=== PATIENT | female | born 1950 | race Caucasian/White ===

== ENCOUNTER 2024-07-28 10:39 | Emergency (ER) | payer MEDICARE, OTHER, SELFPAY ==
[2024-07-28 10:41] VITALS: BP 131/73; PULSE 85; TEMP 36.4; O2SAT 95; BMI 17.2
--- NOTE | 2024-07-28 10:52 | CT_ITS ---
The [address] [address] Patient Name: JOHN SALINAS MRN: [id number] date: 1950 Sex: F Assigned Patient Location: ER Current Patient Location: ER Accession/Order Number: [id number] Exam Date: 07/28/2024 12:03 Report Date: 07/28/2024 14:21 At the request of: ODILIA NAVA Procedure: CT chest wo con EXAMINATION: CT chest wo con, 07/28/2024 11:03 AM CDT HISTORY: fall chest pain. COMPARISON: Chest x-ray 11/18/2022 TECHNIQUE: CT scan of the chest was performed without IV contrast. CT dose reduction technique was used, including Automated Exposure Control. FINDINGS: Lungs/pleura: Lungs are diffusely abnormal. There is bandlike thickening with nodularity most prominent at the apices and left mid chest anteriorly and laterally. Bronchiectasis noted. Nodular densities noted at the apices 8-11 mm along with areas of pleural-based thickening. Areas of interstitial density tree-in-bud appearance seen within the right lung. No dense consolidation or edema. Is a pleural-based thickening question small pleural effusion on the left. No pneumothorax. Mediastinum: No definite adenopathy although assessment limited by lack of contrast. Cardiac/vascular: Heart size borderline. No pericardial effusion. Dilated pulmonary artery consistent with pulmonary hypertension. Mildly dilated aorta 4 cm MUSCULOSKELETAL: moderate wedge-shaped compression T3 without cortical break retropulsion. Age-indeterminate but may be old. Resting kyphosis. Not well demonstrated on previous chest x-ray. No definite acute fracture seen no paraspinal fluid or hematoma. No lower neck or axillary mass or adenopathy. No acute appearing upper abdominal abnormality. CT/CT chest wo con IMPRESSION: 1. Diffusely abnormal lung hobson peripheral pleural-based apical and upper lobe predominant. Chest x-ray also noted diffusely abnormal lung hobson. Question acute versus chronic. Areas of tree-in-bud interstitial density may reflect colitis. No dense consolidation or edema. 2. Pleural-based thickening and questionable small left pleural effusion without pneumothorax. 3. Dilated pulmonary artery consistent with pulmonary hypertension. Mildly dilated aorta. 4. No definite displaced rib fracture or sternal fracture seen. Moderate wedge compression T3 age-indeterminate, may be old. Electronically authenticated by: BARRY COPELAND Date: 07/28/2024 14:21
--- NOTE | 2024-07-28 10:52 | CT_ITS ---
The [address] [address] Patient Name: JOHN SALINAS MRN: [id number] date: 1950 Sex: F Assigned Patient Location: ER Current Patient Location: ER Accession/Order Number: [id number] Exam Date: 07/28/2024 12:03 Report Date: 07/28/2024 12:57 At the request of: ODILIA NAVA Procedure: CT head/brain wo con EXAM: CT head/brain wo con CLINICAL INDICATION: fall COMPARISON: None TECHNIQUE: Axial CT images of the brain were obtained without contrast. Coronal and sagittal reformats were obtained. Dose reduction techniques were achieved by using automated exposure control and/or adjustment of mA and/or kV according to patient size and/or use of iterative reconstruction technique. FINDINGS: No intracranial hemorrhage, extra-axial fluid collection, hydrocephalus, midline shift, or acute large vessel territory infarction. No other mass effect. Patent basal cisterns. Patchy periventricular and subcortical hypoattenuation is likely on the basis of chronic microvascular angiopathic changes. Mild symmetric global volume loss without lobar predominance. Commensurate ventricular system caliber prominence. Bilateral symmetric basal ganglia calcification/mineralization. No calvarial fracture. Normal soft tissues. Moderate left sphenoid sinus mucosal thickening. Remainder of the paranasal sinuses and mastoid air cells are well-aerated. CT/CT head/brain wo con IMPRESSION: No acute intracranial process. Electronically authenticated by: MICHAEL WELLS Date: 07/28/2024 12:57
--- NOTE | 2024-07-28 10:52 | XR_ITS ---
The [address] [address] Patient Name: JOHN SALINAS MRN: [id number] date: 1950 Sex: F Assigned Patient Location: ED.MAIN Current Patient Location: ER Accession/Order Number: [id number] Exam Date: 07/28/2024 14:00 Report Date: 07/28/2024 15:27 At the request of: ODILIA NAVA Procedure: XR shoulder FRANCISCA min 2V EXAM: XR shoulder FRANCISCA min 2V HISTORY: fall right and left shoulder pain COMPARISON: None. TECHNIQUE: AP internal/external rotation, Y-view right shoulder and left shoulder FINDINGS: Right shoulder without fracture or dislocation. Minor degenerative changes. No focal bone lesion. Right lung abnormality also seen on chest x-ray previously. No displaced clavicle right rib fracture noted. Left shoulder without fracture or dislocation. No focal bone lesion. No soft tissue calcification. Minor degenerative changes. Visualized left ribs and clavicle intact. Abnormal lung hobson as seen on previous chest imaging. XR/XR shoulder FRANCISCA min 2V IMPRESSION: No fracture or dislocation right or left shoulder. Electronically authenticated by: BARRY COPELAND Date: 07/28/2024 15:27
--- NOTE | 2024-07-28 10:52 | CT_ITS ---
The [address] [address] Patient Name: JOHN SALINAS MRN: [id number] date: 1950 Sex: F Assigned Patient Location: ER Current Patient Location: ER Accession/Order Number: [id number] Exam Date: 07/28/2024 12:00 Report Date: 07/28/2024 12:54 At the request of: ODILIA NAVA Procedure: CT cervical spine wo con EXAM TYPE: CT cervical spine wo con EXAM DATE AND TIME: 07/28/2024 12:00 PM EDT INDICATION: 74 years old Female with pain following trauma COMPARISON: None TECHNIQUE: CT imaging of the cervical spine was obtained without contrast. Dose reduction techniques were achieved by using automated exposure control and/or adjustment of mA and/or kV according to patient size and/or use of iterative reconstruction technique. FINDINGS: There is normal cervical lordosis. No subluxation. Vertebral body heights are maintained. No acute displaced fracture or traumatic malalignment identified in the setting of osteopenia. Craniocervical junction is normal in appearance. Atlantodental distance is not widened. No prevertebral soft tissue swelling. Mild to moderate multilevel degenerative disc and facet arthropathy. No CT evidence of severe spinal canal stenosis CT/CT cervical spine wo con IMPRESSION: No acute fracture or traumatic malalignment. Electronically authenticated by: BAILEY MCCLENDON Date: 07/28/2024 12:54
--- NOTE | 2024-07-28 10:52 | CT_ITS ---
The [address] [address] Patient Name: OJHN SALINAS MRN: [id number] date: 1950 Sex: F Assigned Patient Location: ER Current Patient Location: ER Accession/Order Number: [id number] Exam Date: 07/28/2024 12:00 Report Date: 07/28/2024 12:58 At the request of: ODILIA NAVA Procedure: CT pelvis wo con Exam Type: CT PELVIS Exam Date and Time: 07/28/2024 12:00 PM EDT Indication: 74 years old Female with pain following trauma Comparison: None TECHNIQUE: Axial CT images of the bony pelvis were obtained without intravenous contrast. Coronal and sagittal reformatted images were obtained. Dose reduction techniques were achieved by using automated exposure control and/or adjustment of mA and/or kV according to patient size and/or use of iterative reconstruction technique. FINDINGS: The bones are diffusely osteopenic, which limits detection of subtle nondisplaced fracture. No acute displaced fracture is evident. There are some cortical regularity involving the mid sacrum at the S3-S4 segment with sclerosis, this could reflect a remote sacral fracture. No comparison studies are available. The sacroiliac joints appear congruent with mild joint space narrowing. The pubic symphysis is congruent. The femurs are well-seated within the acetabula with moderate osteoarthritis. No joint effusion. At least moderate degenerative disc disease the lower lumbar spine, incompletely characterized. Limited evaluation of the pelvic viscera is without acute or suspicious abnormality. CT/CT pelvis wo con IMPRESSION: 1. Suspect chronic sacral fracture. 2. No acute displaced fracture identified in the setting of osteopenia. Electronically authenticated by: BAILEY MCCLENDON Date: 07/28/2024 12:58
--- NOTE | 2024-07-28 10:54 | ECG_ITS ---
The [facility] Test Date: 2024-07-28 Pat Name: JOHN SALINAS Department: Room: - Gender: Female Director [employer]: : 1950 Requested By: Order Number: [id number] Reading MD: ADAMS PURCELL Measurements Intervals Pearson Rate: 79 P: 65 WA: 132 QRS: 96 QRSD: 86 T: 72 QT: 376 QTc: 411 Interpretive Statements 1100 Sinus rhythm 7102 Moderate right axis deviation 9110 normal ECG No previous ECG available for comparison Electronically Signed On 07-28-2024 18:08:54 EDT by ADAMS PURCELL
[2024-07-28] MEDS: KETOROLAC TROMETHAMINE 30 MG/ML VIAL 15 MG IM (11:17)
--- NOTE | 2024-07-28 15:36 | ED_ITS ---
HPI HPI - Fall General Chief Complaint: Fall Stated Complaint: FALL Time Seen by Provider: 07/28/24 10:48 Source: patient Mode of arrival: ambulance History of Present Illness HPI Narrative: The patient is coming to us after she fell down going down steps at the last 3 steps while going down the patient did not lose consciousness but she did complain of left hip pain as well as left neck pain upon arrival Patient did complain of upper chest pain mostly toward the clavicular area She denies any difficulty breathing she is complaining of left-sided neck pain There was no loss of consciousness no other complaints, Related Data Previous Rx's ?Medication ?Instructions ?Recorded meloxicam 7.5 mg tablet 7.5 mg PO DAILY PRN pain #10 tabs 07/28/24 orphenadrine citrate 100 mg 100 mg PO ONCE PRN muscle spasm 07/28/24 tablet,extended release #14 tabs oxycodone-acetaminophen 5 mg-325 1 tab PO Q8H PRN pain 3 days #9 07/28/24 mg tablet (Percocet) tabs Allergies Allergy/AdvReac Type Severity Reaction Status Date / Time No Known Drug Allergies Allergy Verified 07/28/24 10:40 Opioid HPI Opioid Management Most Recent Pain and Opioid Data: Last Pain Scale 10 07/28/24 16:25 07/28/24 Last MAR Pain Assessment 07/28/24 16:25 Review of Systems ROS Status of ROS 10 or more systems reviewed and unremark able except as noted in history and below Exam Narrative Exam Narrative: Nurses notes and vital signs reviewed and patient is not hypoxic. General: Well-appearing and in no apparent distress. Skin: Warm, dry, no pallor noted. No rash. Head: Normocephalic, atraumatic. Neck: Supple, left paraspinal muscle tenderness there is no tenderness upon palpation of the cartilage areas mostly to the left paraspinal muscles at the mid cervical area Eye: Pupils are equal, round and EOMI. No scleral icterus. Ears, Nose, Mouth, and Throat: TM are clear, no nasal mucosal hypertrophy. Oral mucosa is moist, no posterior oropharynx erythema, uvula is mid-line Cardiovascular: Regular Rate and Rhythm without murmur, gallop or rub. Respiratory: No accessory muscle use or respiratory distress. Lungs are clear to auscultation, no wheezing, rales or rhonchi Chest Wall: no tenderness Back: No midline thoracic or lumbar vertebral tenderness. No CVA tenderness Musculoskeletal: normal ROM, no calf or popliteal tenderness, no lower extremity edema/swelling GI: Abdomen is soft, non-distended. Normal bowel sounds. No masses appreciated. No tenderness to palpation. No rebound, guarding, or rigidity noted. Neurological: A&O x4. No cranial nerve dysfunction observed. No truncal ataxia. Moves all extremities. Sensation intact. Psychiatric: Cooperative and interactive. Normal mood and affect. Constitutional Vital Signs, click to edit/add: Last Vital Signs Temp 97.6 F 07/28/24 10:41 Pulse 85 07/28/24 10:41 Resp 18 07/28/24 10:41 BP 131/73 07/28/24 10:41 Pulse Ox 95 07/28/24 10:41 O2 Del Method Room Air 07/28/24 10:41 Course Vital Signs Vital signs: Vital Signs Temperature 97.6 F 07/28/24 10:41 Pulse Rate 85 07/28/24 10:41 Respiratory Rate 18 07/28/24 10:41 Blood Pressure 131/73 07/28/24 10:41 Pulse Oximetry 95 07/28/24 10:41 Oxygen Delivery Method Room Air 07/28/24 10:41 Temperature 97.6 F 07/28/24 10:41 Pulse Rate 85 07/28/24 10:41 Respiratory Rate 18 07/28/24 10:41 Blood Pressure 131/73 07/28/24 10:41 Pulse Oximetry 95 07/28/24 10:41 Oxygen Delivery Method Room Air 07/28/24 10:41 MDM - Fall MDM Narrative Medical decision making narrative: The patient EKG upon arrival showing sinus rhythm with a heart rate of [address] elevation or depression The patient CAT scan of the cervical as well as CT head showed no acute pathology The hard cervical collar was removed CT of the pelvis showed no acute pathology CT of the chest shows chronic pathology I did speak with the radiologist about the findings and he mentioned that this is not due to trauma there is mostly chronic changes The patient right now does not have any shortness of breath her pain is mostly toward the upper clavicular area toward the neck The patient had no other concerns at the moment she was treated in the ER with morphine and Norflex after which she was discharged with Mobic Norflex and Percocet With instruction to come back in case of any new symptoms The patient is to follow up with primary care physician in next 2-3 days or to return to the emergency department should any of the signs or symptoms worsen or new symptoms develop. The patient agrees with the following Diagnosis and Treatment plan and the patient will be discharged home. Discharge Plan Discharge Chief Complaint: Fall Clinical Impression: Fall, Neck sprain Patient Disposition: Home, Self-Care Time of Disposition Decision: 13:57 Condition: Good Prescriptions / Home Meds: New orphenadrine citrate 100 mg tablet extended release 100 mg PO ONCE PRN (Reason: muscle spasm) Qty: 14 0RF meloxicam 7.5 mg tablet 7.5 mg PO DAILY PRN (Reason: pain) Qty: 10 0RF oxycodone-acetaminophen [Percocet] 5-325 mg tablet 1 tab PO Q8H PRN (Reason: pain) 3 Days Qty: 9 0RF Print Language: Kiswahili Instructions: Fall Prevention (ED), Acute Neck Pain (ED) Referrals: Physician,Non-Staff, MD [Primary Care Provider] - 1 week
[2024-07-28] MEDS: ORPHENADRINE 60 MG/ 2 ML VIAL 30 MG IV (16:23)
[2024-07-28] MEDS: MORPHINE SULFATE 2 MG/ML SYRINGE IV (16:25)
== END 2024-07-28 18:13 | disposition home or self-care (01) ==
PROVIDERS: Emergency Provider Emergency Medicine
DX: S13.9XXA Sprain of joints and ligaments of unspecified parts of neck, initial encounter (principal); W10.9XXA Fall (on) (from) unspecified stairs and steps, initial encounter
CPT/HCPCS: 70450; 71250; 72125; 72192; 73030; 93005; 96374; 96375; 99285; J1885; J2270; J2360